=== PATIENT | female | born 1960 | race Caucasian/White ===

== ENCOUNTER 2017-09-28 14:02 | Emergency (ER) | payer BC ==
[2017-09-28 14:46] VITALS: BP 139/69
--- NOTE | 2017-09-28 15:28 | RAD ---
HISTORY: Bilateral hand pain and swelling COMPARISONS: None VIEWS: 8, Frontal, lateral, and oblique views of the right hand and of the left hand FINDINGS: Right: BONE DENSITY: Normal. BONES: There is no displaced fracture. JOINTS: There is advanced osteoarthritis of the first CMC and second DIP joints and to lesser extent of the fifth DIP joint. 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 ALIGNMENT: There is no dislocation. The alignment is anatomic. SOFT TISSUES: Unremarkable. Left: BONE DENSITY: Normal. BONES: There is no displaced fracture. JOINTS: There is advanced osteoarthritis of the first CMC, second DIP, and fifth PIP joints, with a gullwing deformities of the DIP joint. ALIGNMENT: There is no dislocation. The alignment is anatomic. SOFT TISSUES: Unremarkable. OTHER FINDINGS: None. IMPRESSION: OSTEOARTHRITIS WITH FINDINGS SUGGESTIVE OF INFLAMMATORY ARTHRITIS OR PSORIATIC ARTHRITIS OF THE SECOND AND FIFTH DIP JOINTS BILATERALLY
--- NOTE | 2017-09-28 16:17 | UC ---
Cristal Hobbs Emily, scribed for Toni Massey MD on 09/28/17 at 1522 . Upper Extremity HPI - HPI Summary HPI Summary: This patient is a 56 year old F presenting to urgent care with a chief complaint of joint swelling in bilateral hands that began one year ago and worsened one week ago. The patient rates the pain 7/10 in severity. Symptoms aggravated by time of day, worse at night. Symptoms alleviated by nothing. Patient reports bilateral upper extremity pain, general myalgias, back pain, swollen bilateral feet, rash on bilateral arms, and difficulty balancing. Patient denies fever, SOB, abd pain, recent weight loss, and changes in appetite. Pt reports that she is concerned for Lyme disease because she has had recent tick bites. Pt reports having a history of an autoimmune disease. Medications reviewed. Allergies reviewed. - History of Current Complaint Chief Complaint: UCUpperExtremity Stated Complaint: JOINT SWELLING Time Seen by Provider: 09/28/17 14:47 Hx Obtained From: Patient Hx Last Menstrual Period: 2016 ?: No Onset/Duration: Sudden Onset, Lasting Weeks, Worse Since - 1 week ago Severity Initially: Moderate Severity Currently: Moderate Pain Intensity: 7 Pain Scale Used: 0-10 Numeric Location Of Pain: Is Diffuse Aggravating Factor(s): Other - Time of day Alleviating Factor(s): Nothing Associated Signs And Symptoms: Positive: Other - Positive swelling, bilateral upper extremity pain, back pain, swollen bilateral feet, rash on bilateral arms , and balance issues. Negative fever, abd pain, SOB, recent weight loss, and changes in appetite - Allergies/Home Medications Allergies/Adverse Reactions: Allergies Allergy/AdvReac Type Severity Reaction Status Date / Time No Known Allergies Allergy Verified 09/28/17 14:47 Home Medications: Home Medications Iron Supplement 1 drop PO DAILY 09/28/17 [History Confirmed 09/28/17] Vitamin D3 Supplement 1 drop PO DAILY 09/28/17 [History Confirmed 09/28/17] Vitamion B Supplement 1 drop PO DAILY 09/28/17 [History Confirmed 09/28/17] PMH/Surg Hx/FS Hx/Imm Hx - Additional Past Medical History Additional PMH: Autoimmune disease Previously Healthy: No Endocrine History: Other Other Endocrine History: Negative diabetes Cardiovascular History: Other Other Cardiovascular History: Negative HTN - Surgical History Surgical History: Yes Surgery Procedure, Year, and Place: Cataract surgery - Family History Known Family History: Positive: Diabetes - Social History Occupation: Employed Full-time Lives: Alone Alcohol Use: None Substance Use Type: None Smoking Status (MU): Light Every Day Tobacco Smoker Household Exposure Type: Cigarettes Review of Systems Constitutional: Other - Negative fever Skin: Rash Respiratory: Other - Negative SOB Gastrointestinal: Other - Negatie abd pain, recent weight loss and changes in appetite Musculoskeletal: Myalgia, Other: - Positive joint swelling in bilateral hands, bilateral upper extremity pain, back pain, and bilateral swollen feet Neurological: Other - Positive difficulty balancing All Other Systems Reviewed And Are Negative: Yes Physical Exam - Summary Physical Exam Summary: General: well-appearing, no pain distress Skin: warm, color reflects adequate perfusion, dry Head: normal Eyes: EOMI, NORMA ENT: normal Neck: supple, nontender Respiratory: CTA, breath sounds present Cardiovascular: RRR, murmur Abdomen: soft, nontender Bowel: present Musculoskeletal: swelling and painful ROM with movement of all her joints, full ROM, some swelling in the DIPs including tophi on the bilateral index fingers Neurological: sensory/motor intact, A&O x3 Psychological: affect/mood appropriate Triage Information Reviewed: Yes Vital Signs: Initial Vital Signs Temp 98.6 F 09/28/17 14:35 Pulse 71 09/28/17 14:35 Resp 15 09/28/17 14:35 BP 139/69 09/28/17 14:35 Pulse Ox 99 09/28/17 14:35 Vital Signs Reviewed: Yes Diagnostics - Radiology Hand XR Radiology Interpretation Completed By: Radiologist - Hand XR reveals, per radiologist, OSTEOARTHRITIS WITH FINDINGS SUGGESTIVE OF INFLAMMATORY ARTHRITIS OR PSORIATIC ARTHRITIS OF THE SECOND AND FIFTH DIP JOINTS BILATERALLY. Physician has reviewed this radiology report. Re-Evaluation - Re-Evaluation First Eval Re-Evaluation Time: 15:40 Change: Unchanged Comment: Discussed results with the patient Upper Extremity Course/Dx - Course Course Of Treatment: DISCUSSED X-RAY RESULTS WITH PATIENT. LABS FOR ARTHRITIS EVALUATION DRAWN. F/U WITH PMD. - Differential Dx/Diagnosis Provider Diagnoses: POLY ARTHRALGIAS Discharge - Sign-Out/Discharge Documenting (check all that apply): Discharge/Admit/Transfer - Discharge Plan Condition: Stable Disposition: HOME Patient Education Materials: Swollen Joint (ED) Referrals: Lucero Lobato MD [Primary Care Provider] - Additional Instructions: FOLLOW UP WITH YOUR DOCTOR. CALL TOMORROW TO ARRANGE A FOLLOW UP APPOINTMENT. GET RECHECKED FOR ANY WORSENING OF YOUR CONDITION OR QUESTIONS OR CONCERNS. - Billing Disposition and Condition Condition: STABLE Disposition: HOME The documentation as recorded by the Cristal kaufman Emily accurately reflects the service I personally performed and the decisions made by me, Toni Massey MD.
[2017-09-28 18:47] LABS: ABS Basophils 0.1 10^3/ul (0-0.2); ABS Eosinophils 0.4 10^3/ul (0-0.6); ABS Lymphocytes 2.2 10^3/ul (1.0-4.8); ABS Monocytes 0.7 10^3/ul (0-0.8); ABS Neutrophils 5.7 10^3/ul (1.5-7.7); ABS Nucleated RBC 0 10^3/ul; Eosinophil % 4.4 % (0-6); Hematocrit 32 % (35-47); Hemoglobin 9.8 g/dl (12.0-16.0); Lymphocyte % 24.3 % (25-47); Mean Corpuscular HGB Conc 31 g/dl (31-36); Mean Corpuscular Hemoglobin 22 pg (27-31); Mean Corpuscular Volume 71 fL (80-97); Mean Platelet Volume 8.1 um3 (7.4-10.4); Nucleated Red Blood Cells % 0; Platelet Count 330 10^3/ul (150-450); Red Blood Count 4.47 10^6/ul (4.0-5.4); Red Cell Distribution Width 20 % (10.5-15); White Blood Count 9.1 10^3/ul (3.5-10.8)
[2017-09-28 18:59] LABS: EGFR Non-African American 122.9 (>60); Uric Acid 3.1 mg/dL (2.3-6.6)
== END 2017-09-28 15:51 | disposition home or self-care (01) ==
LOC: UCEAST 14:02
DX: M13.0 Polyarthritis, unspecified (principal); M35.9 Systemic involvement of connective tissue, unspecified; Z83.3 Family history of diabetes mellitus; F17.210 Nicotine dependence, cigarettes, uncomplicated
CPT/HCPCS: 36415; 80053; 84550; 85025; 85652; 86038; 86140; 86255; 86431; 86618; 99211; G0463